=== PATIENT | male | born 1950 | race Caucasian/White ===

== ENCOUNTER 2016-12-21 21:00 | Emergency (ER) | payer BC ==
--- NOTE | 2016-12-21 21:02 | UC ---
HPI Febrile Illness - HPI Summary HPI Summary: 66 YEAR OLD WITH A HISTORY OF LYMPHOMA AND PORT PLACEMENT PRESENTS WITH FEVER, CHILLS AND HYPERTENSION. - History of Current Complaint Time Seen by Provider: 12/21/16 21:02 - Allergy/Home Medications Allergies/Adverse Reactions: Allergies Allergy/AdvReac Type Severity Reaction Status Date / Time No Known Allergies Allergy Verified 12/21/16 21:12 Home Medications: Home Medications Aspirin [Aspirin Adult Low Dose 81 MG] 81 mg PO DAILY 12/21/16 [History Confirmed 12/21/16] Atorvastatin* [Lipitor*] 40 mg PO DAILY 12/21/16 [History Confirmed 12/21/16] Clopidogrel TAB* [Plavix TAB*] 75 mg PO DAILY 12/21/16 [History Confirmed ] Metoprolol Tartrate TAB* [Lopressor TAB*] 25 mg PO DAILY 12/21/16 [History Confirmed 12/21/16] Nitroglycerin TAB 0.4 MG* 0.4 mg SL Q5M PRN 12/21/16 [History Confirmed 12/21/16 ] [place]-3 Fatty Acids [Fish Oil] 1,200 mg PO DAILY 12/21/16 [History Confirmed ] Review of Systems Constitutional: Fever, Chills Skin: Negative Eyes: Negative ENT: Negative Respiratory: Negative Cardiovascular: Negative Gastrointestinal: Negative Genitourinary: Negative Motor: Negative Neurovascular: Negative Musculoskeletal: Negative Neurological: Negative Psychological: Negative All Other Systems Reviewed And Are Negative: Yes Physical Exam Triage Information Reviewed: Yes Appearance: Ill-Appearing Eye Exam: Normal ENT Exam: Normal Dental Exam: Normal Neck exam: Normal Neck: Positive: 1 Respiratory Exam: Normal Cardiovascular Exam: Normal Abdominal Exam: Normal Musculoskeletal Exam: Normal Neurological Exam: Normal Psychological Exam: Normal Skin Exam: Normal Course/Dx - Diagnoses Clinic Provider Diagnoses: FEVER. CHILLS. HYPERTENSION Discharge - Discharge Plan Condition: Stable Disposition: AGAINST MEDICAL ADVICE Referrals: No Primary Care Phys,NOPCP [Medical Doctor] -
[2016-12-21 21:12] VITALS: BP 145/83
== END 2016-12-21 21:35 | disposition left against medical advice (07) ==
LOC: UCCORT 21:00
DX: R50.9 Fever, unspecified (principal); I10 Essential (primary) hypertension; Z79.82 Long term (current) use of aspirin; Z79.02 Long term (current) use of antithrombotics/antiplatelets
CPT/HCPCS: 99202; G0463

== ENCOUNTER 2017-02-07 20:54 | Emergency (ER) | payer BC ==
[2017-02-07 21:03] VITALS: BP 142/87
[2017-02-07] MEDS ORDERED: predniSONE TAB* 20 MG PO ONE (21:25)
--- NOTE | 2017-02-07 21:28 | UC ---
Skin Complaint HPI - HPI Summary HPI Summary: RASH RIGHT POSTERIOR NECK X 1 DAYS + ITCHY , MILD PAIN ? CONTACT WITH [facility] NO FEVER, NO CHILLS - History of Current Complaint Chief Complaint: [facility] Time Seen by Provider: 02/07/17 21:16 Stated Complaint: RASH ON NECK Hx Obtained From: Patient Onset/Duration: Gradual Onset, Lasting Days - 1, Still Present Timing: Constant Onset Severity: Moderate Current Severity: Moderate Location: Discrete - RIGHT POSTERIOR NECK Character: Swelling, Pruritus, Pain, Redness Aggravating: Nothing Alleviating: Nothing Associated Signs & Symptoms: Positive: Tenderness. Negative: Nausea, Vomiting, Numbness, Thirst, Diaphoresis, Weakness, Pallor, Shivering, Fever, Chills, Cough , Wheezing, Red Streaks - Allergy/Home Medications Allergies/Adverse Reactions: Allergies Allergy/AdvReac Type Severity Reaction Status Date / Time No Known Allergies Allergy Verified 02/07/17 21:03 Review of Systems Constitutional: Negative Skin: Rash Eyes: Negative ENT: Negative Respiratory: Negative Cardiovascular: Negative Gastrointestinal: Negative All Other Systems Reviewed And Are Negative: Yes PMH/Surg Hx/FS Hx/Imm Hx Cardiovascular History: Cardiac Disease, Hypertension - Surgical History Surgical History: Yes Surgery Procedure, Year, and Place: Cardiac Stent. Right Shoulder surgery - Family History Known Family History: Positive: Cardiac Disease, Hypertension - Social History Alcohol Use: None Substance Use Type: None Smoking Status (MU): Never Smoked Tobacco - Immunization History Most Recent Influenza Vaccination: no Physical Exam Triage Information Reviewed: Yes Appearance: Well-Appearing, No Pain Distress, Well-Nourished Vital Signs: Initial Vital Signs Temp 98.6 F 02/07/17 20:59 Pulse 66 02/07/17 20:59 Resp 14 02/07/17 20:59 BP 142/87 02/07/17 20:59 Pulse Ox 100 02/07/17 20:59 Vital Signs Reviewed: Yes Eyes: Positive: Conjunctiva Clear ENT: Positive: Normal ENT inspection, Hearing grossly normal, Pharynx normal Neck exam: Normal Neck: Positive: Supple, Nontender, No Lymphadenopathy Respiratory: Positive: Chest non-tender, Lungs clear, Normal breath sounds, No respiratory distress Cardiovascular: Positive: RRR, No Murmur, Pulses Normal Skin: Positive: rashes - PAPULAR RASH RIGHT POSTERIOR NECK Course/Dx - Diagnoses Provider Diagnoses: SHINGLES Discharge - Discharge Plan Condition: Stable Disposition: HOME Prescriptions: Triamcinolone 0.1% CREAM(NF) [Kenalog Cream 0.1%(NF)] 1 applic TOPICAL BID #30 gm ValACYclovir (*) [Valtrex 1 GM(*)] 1 gm PO BID #14 tab predniSONE TAB* [Deltasone TAB*] 40 mg PO DAILY #10 tab Patient Education Materials: Shingles (ED) Referrals: Mathieu Sy PA [Primary Care Provider] - 7 Days
== END 2017-02-07 21:36 | disposition home or self-care (01) ==
LOC: UCCORT 20:54
DX: B02.9 Zoster without complications (principal); I10 Essential (primary) hypertension
CPT/HCPCS: 99212; G0463; J7512